=== PATIENT | male | born 1985 | race Caucasian/White ===

== ENCOUNTER 2017-05-05 05:26 | Day surgery (SDC) | payer OTHER ==
[2017-05-05] MEDS ORDERED: fentaNYL 100 MCG/2 ML SDV IV ONE ×3 (05:27→06:40)
[2017-05-05] MEDS ORDERED: Midazolam 1 MG/ML 2 ML SDV IV ONE ×3 (05:27→06:41)
[2017-05-05] MEDS ORDERED: fentaNYL 100 MCG/2 ML SDV ONE (06:14)
[2017-05-05] MEDS ORDERED: Midazolam 1 MG/ML 2 ML SDV ONE (06:14)
[2017-05-05] MEDS ORDERED: Dextrose 5%-0.45% NaCl 1,000 ML IV SCH ×2 (06:15→07:00)
[2017-05-05] MEDS ORDERED: Sodium Chloride 0.9% 10 ML Syringe FLUSH PRN (07:00)
--- NOTE | 2017-05-05 07:37 | OR ---
DATE: 05/05/2017 PROCEDURE: Esophagogastroduodenoscopy and multiple pinch biopsies. INSTRUMENT USED: GIF-H180 Olympus video panendoscope. PREMEDICATIONS: No oral topical anesthesia used. Fentanyl 100 mcg intravenous, Versed 2 mg intravenous. Nasal O2 cannula. The procedure was done under pulse oximetry, BP recording, and lacquer polisher. INDICATION: The patient with longstanding difficulties of heartburn as well as high dysphagia unexplained, not responsive to medical measures, on acid suppressants. DESCRIPTION OF PROCEDURE: Esophagogastroduodenoscopy is performed for detection of any active erosive lesions. Vazquez esophagus and/or malignancy also under consideration. H. pylori status to be determined. Biopsies to be obtained for esophageal eosinophilia if indicated. Endoscopic hemostasis therapy if needed. The scope was passed with ease. Adequate visualization of the esophagus was made from proximal to distal areas. No upper esophageal lesions identified. No distal esophageal stricture. No uphill or downhill esophageal varices. No Juany-Reveles tear. No evidence of erosive esophagitis by [place] criteria. No esophageal polyp or tumor mass identified. Z-line was seen at around 40 cm distal to the oral verge, configuration consistent with grade I by ZAP classification. No proximal gastric varices noted. Gastric fundus examination by retroflexion showed no polypoid lesions. No gastric ulcer, malignant mass, or vascular ectasia identified. Duodenal bulb showed no ulcer. Visualized second part of the duodenum was unremarkable. Multiple pinch biopsies were taken from the gastric antrum and proximal body and sent for PyloriTek test for H. pylori and histopathology. Four-quadrant biopsies were taken from the distal and proximal esophagus and sent for any histopathologic evidence of esophageal eosinophilia. No bleeding was noted from any of the visualized areas at the completion of examination. IMPRESSION: Normal study. The patient tolerated the procedure well. [facility] /[id number]
== END 2017-05-05 08:50 | disposition home or self-care (01) ==
LOC: DL.ENDO 05:26
PROVIDERS: ATTEND Internal Medicine Gastroenterology
DX: R12 Heartburn (principal); F41.9 Anxiety disorder, unspecified; Z88.0 Allergy status to penicillin; Z79.899 Other long term (current) drug therapy; Z87.09 Personal history of other diseases of the respiratory system
CPT/HCPCS: 43239; 87077; J2250; J3010; J7042

== ENCOUNTER 2017-07-19 13:48 | Emergency (ER) | payer OTHER ==
--- NOTE | 2017-07-19 16:15 | EDM.PDOC ---
ED HPI GENERAL MEDICAL PROBLEM - General Chief Complaint: Lower Extremity Injury/Pain Stated Complaint: BLEACHED FOOT Time Seen by Provider: 07/19/17 14:40 Source of Information: Reports: Patient, Family, RN, RN Notes Reviewed History Limitations: Reports: No Limitations - History of Present Illness INITIAL COMMENTS - FREE TEXT/NARRATIVE: Pt presents to the ER with c/o athlete's foot. He states he has been dealing with this for weeks and no improvement. Today he read on the internet to soak his feet in a bleach 1 part/water 10 parts. He states he feels he diluted this more than that, but is very concerned that he will develop a chemical burn from this. Pt states he has been fighting with [employer] as well. He denies any further problems. Onset: Gradual Location: Reports: Lower Extremity, Left, Lower Extremity, Right - Related Data Allergies Allergy/AdvReac Type Severity Reaction Status Date / Time Penicillins Allergy Rash Verified 07/19/17 13:55 Home Meds: Home Meds Albuterol Sulfate [Proair Hfa] 1 puff INH ASDIRECTED PRN 05/02/17 [History] Omeprazole [Omeprazole] 1 cap PO DAILY 05/02/17 [History] Past Medical History HEENT History: Reports: None Cardiovascular History: Reports: None Respiratory History: Reports: Asthma Gastrointestinal History: Reports: GERD Genitourinary History: Reports: None Musculoskeletal History: Reports: None Neurological History: Reports: Concussion Psychiatric History: Reports: None Endocrine/Metabolic History: Reports: None Hematologic History: Reports: None Immunologic History: Reports: None Oncologic (Cancer) History: Reports: None Dermatologic History: Reports: Other (See Below) Other Dermatologic History: DERMATITIS - Infectious Disease History Infectious Disease History: Reports: Chicken Pox - Past Surgical History Head Surgeries/Procedures: Reports: None HEENT Surgical History: Reports: None Cardiovascular Surgical History: Reports: None Respiratory Surgical History: Reports: None GI Surgical History: Reports: None Male Surgical History: Reports: None Endocrine Surgical History: Reports: None Neurological Surgical History: Reports: None Musculoskeletal Surgical History: Reports: None Dermatological Surgical History: Reports: None Social & Family History - Tobacco Use Smoking Status *Q: Never Smoker Used Tobacco, but Quit: Yes Month Tobacco Last Used: 04/2002 Second Hand Smoke Exposure: No - Caffeine Use Caffeine Use: Reports: None - Recreational Drug Use Recreational Drug Use: No Drug Use in Last 12 Months: No Review of Systems - Review of Systems Review Of Systems: ROS reveals no pertinent complaints other than HPI. ED EXAM, GENERAL - Physical Exam Exam: See Below Exam Limited By: No Limitations General Appearance: Alert, WD/WN, No Apparent Distress Eye Exam: Bilateral Eye: EOMI, Normal Inspection, PERRL Ears: Normal External Exam, Hearing Grossly Normal Nose: Normal Inspection, Normal Mucosa, No Blood Throat/Mouth: Normal Inspection, Normal Lips, Normal Teeth, Normal Gums, Normal Oropharynx, Normal Voice, No Airway Compromise Head: Atraumatic, Normocephalic Neck: Normal Inspection, Supple, Non-Tender, Full Range of Motion Respiratory/Chest: No Respiratory Distress, Lungs Clear, Normal Breath Sounds, No Accessory Muscle Use, Chest Non-Tender Cardiovascular: Normal Peripheral Pulses, Regular Rate, Rhythm, No Edema, No Gallop, No JVD, No Murmur, No Rub Peripheral Pulses: 2+: Radial (L), Radial (R), Dorsalis Pedis (L), Dorsalis Pedis (R) GI/Abdominal: Normal Bowel Sounds, Soft, Non-Tender, No Organomegaly, No Distention, No Abnormal Bruit, No Mass (Male) Exam: Deferred Rectal (Males) Exam: Deferred Back Exam: Normal Inspection, Full Range of Motion, NT Extremities: Normal Inspection, Normal Range of Motion, Non-Tender, Normal Capillary Refill, No Pedal Edema Neurological: Alert, Oriented, CN II-XII Intact, Normal Cognition, Normal Gait, Normal Reflexes, No Motor/Sensory Deficits Psychiatric: Normal Affect, Normal Mood Skin Exam: Warm, Dry, Other (Bottoms of feet have dried scaling skin in the center of the foot. No sign of chemical burn, no redness, swelling, itching, burning. ) Lymphatic: No Adenopathy Course - Vital Signs Last Recorded V/S: Last Vital Signs Temp 97.4 F 07/19/17 13:51 Pulse 85 07/19/17 13:51 Resp 18 07/19/17 13:51 BP 143/91 H 07/19/17 13:51 Pulse Ox 98 07/19/17 13:51 Departure - Departure Time of Disposition: 16:14 Disposition: Home, Self-Care 01 Condition: Fair Clinical Impression: Tinea cruris Athletes foot Qualifiers: Laterality: left Qualified Code(s): B35.3 - Tinea pedis - Discharge Information Instructions: Athlete's Foot, [id number], Jock Itch, [id number] Referrals: PCP,None [Primary Care Provider] - Forms: ED Department Discharge Additional Instructions: RX: Fluconizole Continue using the Lotrimen Follow up with your primary care facility if no improvement
== END 2017-07-19 16:26 | disposition home or self-care (01) ==
LOC: DL.ED 13:48
DX: B35.6 Tinea cruris (principal); B35.3 Tinea pedis; Z88.0 Allergy status to penicillin; J45.909 Unspecified asthma, uncomplicated; K21.9 Gastro-esophageal reflux disease without esophagitis; Z79.899 Other long term (current) drug therapy; Z87.891 Personal history of nicotine dependence
CPT/HCPCS: 96360; 99282; 99285

== ENCOUNTER 2017-08-15 05:14 | Day surgery (SDC) | payer OTHER ==
[2017-08-15] MEDS ORDERED: fentaNYL 100 MCG/2 ML SDV IV ONE ×3 (05:15→06:32)
[2017-08-15] MEDS ORDERED: Midazolam 1 MG/ML 2 ML SDV IV ONE ×7 (05:15→06:39)
[2017-08-15] MEDS ORDERED: Dextrose 5%-0.45% NaCl 1,000 ML IV SCH (06:00)
[2017-08-15] MEDS ORDERED: Sodium Chloride 0.9% 10 ML Syringe FLUSH PRN (06:00)
[2017-08-15] MEDS ORDERED: Midazolam 1 MG/ML 2 ML SDV ONE (06:18)
[2017-08-15] MEDS ORDERED: fentaNYL 100 MCG/2 ML SDV ONE (06:18)
--- NOTE | 2017-08-15 11:39 | OR ---
DATE: 08/15/2017 PROCEDURE: Total colonoscopy. INSTRUMENT USED: CF-H180 [place] Olympus video colonoscope. PREMEDICATIONS: Fentanyl 100 mcg intravenous, Versed 4 mg intravenous, nasal O2 cannula. The procedure was done under pulse oximetry, BP recording, and director of cardiac rehabilitation. INDICATION: The patient with rectal bleeding. Colonoscopic examination is done for detection of any polypoid lesions and removal, endoscopic hemostasis therapy if needed. DESCRIPTION OF PROCEDURE: Initial rectal exam was unremarkable. Rigid anoscopy was normal. The colonoscope was passed with ease up to the ileocecal area. Photographs were taken of the normal-appearing cecum identified by double-bulged ileocecal folds. No bleeding was noted from any of the visualized areas at the commencement of the examination. No stricture. No vascular ectasia. No large isolated ulcerations seen. No evidence of diffuse inflammatory bowel disease in the form of friability, contact bleeding, or ulcerations. No polyp or tumor mass identified. Probing the proximal sides of folds and flexures, using adequate distention and clearing up the stool material, withdrawal of the scope was made. Cecum to rectum time over 6 minutes. No bleeding was noted from any of the visualized areas at the completion of examination. IMPRESSION: Normal study. The patient tolerated the procedure well. [facility] /[id number]
== END 2017-08-15 08:41 | disposition home or self-care (01) ==
LOC: DL.ENDO 05:14
PROVIDERS: ATTEND Internal Medicine Gastroenterology
DX: K62.5 Hemorrhage of anus and rectum (principal); K21.9 Gastro-esophageal reflux disease without esophagitis; F41.1 Generalized anxiety disorder
CPT/HCPCS: 45378; J2250; J3010; J7042